=== PATIENT | male | born 1935 | race Caucasian/White ===

== ENCOUNTER 2022-11-04 08:16 | Day surgery (SDC) | payer MEDICARE, BC ==
[2022-11-02 11:18] LABS: BASOPHILS # (AUTO) 0.1 X10'3 (0-0.2); BASOPHILS % (AUTO) 0.9 % (0-1); EOSINOPHILS # (AUTO) 0.3 X10'3 (0-0.9); EOSINOPHILS % (AUTO) 3.9 % (0-6); HEMATOCRIT 47.1 % (42.0-52.0); HEMOGLOBIN 16.2 g/dl (14.0-17.9); LYMPHOCYTES # (AUTO) 1.8 X10'3 (1.1-4.8); LYMPHOCYTES % (AUTO) 25.3 % (21-51); MEAN CORPUSCULAR HEMOGLOBIN 30.6 PG (27.0-31.0); MEAN CORPUSCULAR HGB CONC 34.3 g/dL (33.0-36.5); MEAN CORPUSCULAR VOLUME 89.3 FL (78-98); MONOCYTES # (AUTO) 0.7 X10'3 (0-0.9); MONOCYTES % (AUTO) 10.6 % (2-12); NEUTROPHILS # (AUTO) 4.1 X10'3 (1.8-7.7); NEUTROPHILS % (AUTO) 59.3 % (42-75); PLATELET COUNT 277 X10'3 (140-440); RED BLOOD COUNT 5.28 X10'6 (4.70-6.10); RED CELL DISTRIBUTION WIDTH 13.9 % (11.5-14.5)
[2022-11-02 11:40] LABS: APTT 24 SECONDS (22-32)
[2022-11-02 11:44] LABS: ALANINE AMINOTRANSFERASE 33 U/L (12-78); ALBUMIN 3.9 G/DL (3.4-5.0); ALBUMIN/GLOBULIN RATIO 1.2 (1.1-1.5); ALKALINE PHOSPHATASE 78 IU/L (46-116); ANION GAP 12 (8-16); ASPARTATE AMINO TRANSFERASE 16 U/L (10-37); BILIRUBIN,TOTAL 0.7 MG/DL (0.1-1.0); BLOOD UREA NITROGEN 21 MG/DL (7-18); BUN/CREATININE RATIO 14.3 (10.0-20.0); CALCIUM 9.5 MG/DL (8.5-10.1); CHLORIDE 108 MMOL/L (99-107); CREATININE 1.47 MG/DL (0.60-1.10); POTASSIUM 4.1 MMOL/L (3.5-5.1); SODIUM 144 MMOL/L (135-145); TOTAL CARBON DIOXIDE 24.4 MMOL/L (24-32); TOTAL PROTEIN 7.2 G/DL (6.4-8.2); eGFR 46 ML/MIN
[2022-11-02 11:52] LABS: GLUCOSE 87 MG/DL (70-104)
[~2022-11-04] VITALS: Ht 175.3 cm; Wt 88.6 kg
[2022-11-04] VITALS (12 sets, daily range): BP systolic 134–169; BP diastolic 68–99; PULSE 57–70; RESP 14–17; TEMP 97.7; O2SAT 93–97
[2022-11-04] MEDS ORDERED: diphenhydrAMINE 25mg capsule PO PRN (08:35)
[2022-11-04] MEDS ORDERED: nitroGLYCERIN 0.4mg SUBLingual tab SL PRN ×2 (08:35→12:30)
[2022-11-04] MEDS ORDERED: LORazepam 0.5 MG tablet PO PRN (08:35)
[2022-11-04] MEDS ORDERED: normal saline 1,000 ML IV SCH (08:35)
[2022-11-04] MEDS ORDERED: OMEP20CA16 PO (09:18)
[2022-11-04] MEDS ORDERED: FLO0.4C PO (09:18)
[2022-11-04] MEDS ORDERED: CYAN250014 PO (09:18)
[2022-11-04] MEDS ORDERED: CHOL400T57 PO (09:18)
[2022-11-04] MEDS ORDERED: LOSA100T58 PO (09:18)
[2022-11-04] MEDS ORDERED: FLUT16SP11 BOTHNARES (09:18)
[2022-11-04] MEDS ORDERED: SODI650T29 PO (09:18)
[2022-11-04] MEDS ORDERED: ZOLP5TAB2 PO (09:18)
[2022-11-04] MEDS ORDERED: KETO15CR2 TD (09:18)
[2022-11-04] MEDS ORDERED: LORA10TA7 PO (09:18)
[2022-11-04] MEDS ORDERED: MONT-40 PO (09:18)
[2022-11-04] MEDS ORDERED: UBID100C16 PO (09:18)
[2022-11-04] MEDS ORDERED: DILT-94 PO (09:18)
[2022-11-04] MEDS ORDERED: ROSU20TA73 PO (09:18)
[2022-11-04] MEDS ORDERED: midazolam 1 mg/ML 2ml injection ONE ×2 (10:15→11:11)
[2022-11-04] MEDS ORDERED: fentaNYL/PF 50MCG/1 ML 2ML syringe ONE (10:15)
[2022-11-04] MEDS ORDERED: iohexol 350 MG/ML 50ML vial IV ONE (10:15)
[2022-11-04] MEDS ORDERED: iohexol 350MG/ML 100ml bottle IV ONE ×2 (10:15→11:01)
[2022-11-04] MEDS ORDERED: LIDOcaine 1% (10mg/ml)w/preservative inj. 20ml MDV ONE (10:15)
[2022-11-04] MEDS ORDERED: nitroGLYCERIN-Tridil 50MG/D5W 250 ML IV ONE (10:45)
[2022-11-04 11:28] LABS: ISTAT HGB ART 13.6 g/dl (14.0-17.9); ISTAT Hct ART 40 %PCV (42-52); ISTAT O2 SATURATION ARTERIAL 96 % (95-98); ISTAT SOURCE ART
[2022-11-04 11:31] LABS: ISTAT Hct MIX 40 %PCV (42-52); ISTAT O2 SATURATION MIX VENOUS 72 % (60-80); ISTAT SOURCE VEN
[2022-11-04] MEDS ORDERED: OXAZEpam 15mg capsule PO PRN (12:30)
[2022-11-04] MEDS ORDERED: proCHLORperazine 10 MG/2 ml inj IV PRN (12:30)
[2022-11-04] MEDS ORDERED: ondansetron/PF 4mg/2ml inj IV PRN (12:30)
[2022-11-04] MEDS ORDERED: normal saline 1000ml 1,000 ML IV SCH (12:30)
[2022-11-04] MEDS ORDERED: acetaminophen 325mg tablet PO PRN (14:00)
== END 2022-11-04 18:00 | disposition home or self-care (01) ==
LOC: SSTAY O 08:16
PROVIDERS: ATTEND Internal Medicine Cardiovascular Disease
DX: I25.10 Atherosclerotic heart disease of native coronary artery without angina pectoris (principal); E78.5 Hyperlipidemia, unspecified; J43.9 Emphysema, unspecified; M19.90 Unspecified osteoarthritis, unspecified site; I10 Essential (primary) hypertension; K21.9 Gastro-esophageal reflux disease without esophagitis; I25.2 Old myocardial infarction; E66.9 Obesity, unspecified; Z68.28 Body mass index [BMI] 28.0-28.9, adult; Z88.5 Allergy status to narcotic agent; Z88.8 Allergy status to other drugs, medicaments and biological substances; Z90.49 Acquired absence of other specified parts of digestive tract; Z98.890 Other specified postprocedural states; Z90.5 Acquired absence of kidney; Z79.899 Other long term (current) drug therapy; Z87.891 Personal history of nicotine dependence; Z79.01 Long term (current) use of anticoagulants
CPT/HCPCS: 36415; 80053; 82803; 85014; 85025; 85610; 85730; 93005; 93460; 99152; 99153; J1644; J2250; J3010; J3490; J7030; Q0163; Q9967; A6258; A6402; C1751; C1760

== ENCOUNTER 2023-02-22 09:16 | Outpatient (CLI) | payer MEDICARE, BC ==
[~2023-02-22 09:16] MED LIST: CHOL400T57 PO; CYAN250014 PO; DILT-94 PO; FLO0.4C PO; FLUT16SP11 BOTHNARES; KETO15CR2 TD; LORA10TA7 PO; LOSA100T58 PO; MONT-40 PO; OMEP20CA16 PO; ROSU20TA73 PO; SODI650T29 PO; UBID100C16 PO; ZOLP5TAB2 PO
== END 2023-02-22 23:59 | disposition home or self-care (01) ==
LOC: RT 09:16
PROVIDERS: ATTEND Family Medicine
DX: J45.909 Unspecified asthma, uncomplicated (principal); Z79.899 Other long term (current) drug therapy
CPT/HCPCS: 94618